=== PATIENT | female | born 1960 | race Two or more races ===

== ENCOUNTER 2022-02-21 09:15 | Outpatient (REF) | payer MEDICARE, SELFPAY ==
[2022-02-21 09:56] LABS: COVID-19 Test Positive (Negative)
== END 2022-02-21 09:16 | disposition home or self-care (01) ==
LOC: HO.LAB 09:15
PROVIDERS: Visit Provider Internal Medicine
DX: Z20.822 Contact with and (suspected) exposure to COVID-19 (principal)
CPT/HCPCS: 87635; C9803